=== PATIENT | male | born 1945 | race Caucasian/White ===

== ENCOUNTER 2019-02-25 09:49 | Emergency (ER) | payer MEDICARE ==
--- NOTE | 2019-02-25 10:58 | RAD ---
Exam: Chest one view HISTORY:Altered mental status Comparison: None FINDINGS: Cardiac silhouette: Normal Aorta: Unremarkable Pulmonary vessels: Normal Costophrenic angles: Clear LUNGS: Chronic changes. No masses or consolidation. Pneumothorax: None Osseous abnormalities: None IMPRESSION: No acute cardiopulmonary process.
[2019-02-25 11:01] LABS: #Basophils 0.1 thou/uL (0.0-0.2); #Lymphocytes 0.2 thou/uL (1.20-3.40); #Neutrophils 13.4 thou/uL (1.40-6.50); %Basophils 0.4 % (0.0-1.0); %Lymphocytes 1.7 % (21.0-51.0); %Neutrophils 90.9 % (42.0-75.0); Mean Corpuscular HGB CONC 30.5 g/dL (32.0-36.0); Mean Corpuscular Hemoglobin 28.1 pg (27.0-31.0); Mean Corpuscular Volume 92.1 fL (78.0-98.0); Mean Platelet Volume 9.4 fL (7.4-10.4); Platelet Count 244 thou/uL (130-400); RBC Distribution Width 12.3 % (11.5-14.5); Red Blood Cell (RBC) Count 5.35 mill/uL (4.70-6.10); White Blood Cell (WBC) Count 14.7 thou/uL (4.8-10.8)
[2019-02-25 11:05] LABS: ALT (SGPT) 38 U/L (8-55); AST (SGOT) 17 U/L (5-34); Alkaline Phosphatase 126 U/L (40-110); Anion Gap 28 mmol/L (10-20); BUN (Urea Nitrogen) 66 mg/dL (8.4-25.7); Bilirubin, Total 0.4 mg/dL (0.2-1.2); CK (CPK) 38 U/L (30-200); Calc. Creatinine Clearance 0 mL/min (70-130); Carbon Dioxide 19 mmol/L (23-31); Chloride 81 mmol/L (98-107); Estimated GFR-MDRD 10; Globulin 2.6 g/dL (2.4-3.5); Protein, Total 6.6 g/dL (5.8-8.1); Sodium 122 mmol/L (136-145)
[2019-02-25 11:29] LABS: Calcium 12.8 mg/dL (7.8-10.44)
[2019-02-25 11:30] LABS: Glucose 1093 mg/dL (83-110)
[2019-02-25] MEDS ORDERED: Insulin Regular 300 UNITS/3 ML VIAL ONE (11:37)
[2019-02-25 12:03] LABS: Bilirubin Negative (Negative); Blood, Urine Moderate (Negative); Clarity Clear (Clear); Glucose, Urine (Dipstick) >=1000 mg/dL (Negative); Leukocyte Negative (Negative); Nitrite Negative (Negative); Protein, Urine (Dipstick) Negative (Neg-Trace); Urobilinogen 0.2 mg/dL (Less than 2)
[2019-02-25 12:19] LABS: Base Excess-Venous -4.6 mmol/L (-2.0 to 3.0); Bicarbonate (HCO3v) 20.1 mmol/L (22.0-28.0); CO2 Tension (PvCO2) 35.7 mmHg (40.0-50.0); Calcium, Ionized 1.41 mmol/L (See Comments:); Chloride 89 mmol/L (98-107); Hemoglobin - Calc 15.9 g/dL (14.0-18.0); Potassium 5.5 mmol/L (3.5-5.1); Sodium 122 mmol/L (138-145); T. Carbon Dioxide 21.2 mmol/L (22.0-28.0); vO2 Saturation-calc 85.6 % (60.0-85.0)
[2019-02-25 12:23] LABS: Bacteria/HPF None Seen HPF (None Seen); Squamous Epithelial 0-3 HPF (0-3); WBC/HPF None Seen HPF (0-3)
== END 2019-02-25 12:58 | disposition short-term general hospital (02) ==
LOC: NAV ERS 09:49
DX: E11.10 Type 2 diabetes mellitus with ketoacidosis without coma (principal); N17.9 Acute kidney failure, unspecified; E86.0 Dehydration; E87.6 Hypokalemia; R33.9 Retention of urine, unspecified; Z79.82 Long term (current) use of aspirin; Z79.899 Other long term (current) drug therapy
CPT/HCPCS: 36415; 36416; 51702; 71045; 80053; 81003; 81015; 82010; 82330; 82550; 82803; 83605; 84484; 85025; 87040; 87804; 93005; 96361; 96374; A4353; J1815

== ENCOUNTER 2019-07-18 16:09 | Emergency (ER) | payer MEDICARE ==
--- NOTE | 2019-07-18 16:48 | CT ---
BRAIN CT WITHOUT IV CONTRAST: 07/18/19 HISTORY: Injury from trauma. COMPARISON: 02/25/19. FINDINGS: No focal mass or midline shift. No intra or extra-axial hemorrhage. Sinuses and mastoids are clear of acute process. IMPRESSION: No significant acute intracranial process. No mass or bleed. Stable from prior study. POS: RRE
--- NOTE | 2019-07-18 16:58 | RAD ---
EXAM: CHEST ONE VIEW HISTORY: Left-sided rib pain after falling off a 6 foot ladder. COMPARISON: 02/25/2019 FINDINGS: Questionable lateral and posterolateral left-sided rib fractures are seen; however, due to positionin g, the ribs in this region are overlapping and difficult to adequately evaluate. Dedicated rib series is recommended. Cardiac silhouette is magnified by projection. Pulmonary vasculature is within normal limits. No pneu mothorax or pleural effusion is appreciated. Postoperative changes right shoulder are again seen. IMPRESSION: Suboptimal evaluation of the ribs secondary to positioning of the patient. A dedicated left rib serie s is recommended for further evaluation as there is suggestion of subtle nondisplaced lateral and posterolateral left-sided rib fractures.
--- NOTE | 2019-07-18 17:09 | CT ---
CT THORAX NONCONTRAST: DATE: 07/18/2019 HISTORY: 74-year-old male status post acute chest trauma, fall from 6 foot ladder COMPARISON: none FINDINGS: Images of the lung bases are significantly degraded because of patient breathing motion artifact. There are bilateral C7 cervical ribs. Multiple acute left rib fractures with at least 100% bone width displacement: Involving the lateral a spects of left second, third, fourth, and fifth ribs. Associated subcutaneous emphysema in the left lateral chest wall. No pneumothorax. Small focal consolidation at posterior base of left lower lobe. This could be a pulmonary contusion, atelectasis, or aspiration. Groundglass densities at the bases of bilateral lower lobes. At least some of this probably represent s artifact from breathing motion. Upper lobes are clear of pulmonary edema and consolidation. No thoracic aortic aneurysm. A few small calcified gallstones. No cardiomegaly or pericardial effusion. No mediastinal hematoma. No acute compression fracture of thoracic spine identified. Multilevel moderate and mild degenerative disc disease in mid and lower thoracic spine. No sternal displaced fracture. No displaced fracture of scapula or clavicles. IMPRESSION: 1. At least 4 left lateral acute, traumatic, displaced rib fractures with associated subcutaneous emp hysema of the chest wall. 2. Small focal consolidation at posterior base of left lower lobe.
[2019-07-18 17:21] LABS: PTT 31.1 sec (22.9-36.1); Prothrombin Time 13.1 sec (12.0-14.7)
[2019-07-18] MEDS ORDERED: Ketorolac Tromethamine 30 MG/ML VIAL ONE (17:23)
[2019-07-18] MEDS ORDERED: Fentanyl 100 MCG/2 ML VIAL ONE (17:23)
[2019-07-18] MEDS ORDERED: Acetaminophen 325 MG TAB ONE (17:23)
--- NOTE | 2019-07-18 17:24 | CT ---
CT CERVICAL SPINE WITHOUT IV CONTRAST: 07/18/19 HISTORY: Fell off a six foot ladder, neck pain. FINDINGS: Multilevel degenerative changes are present. No acute fracture, subluxation or facet malalignment is identified. There is a left sided pneumothorax Discussed over the telephone with ER physician, Dr. Jonatan Orona at 4:54 p.m.
[2019-07-18 17:25] LABS: #Basophils 0.1 thou/uL (0.0-0.2); #Eosinphils 0.1 thou/uL (0.0-0.7); #Lymphocytes 0.7 thou/uL (1.20-3.40); #Monocytes 0.7 thou/uL (0.11-0.59); #Neutrophils 8.5 thou/uL (1.40-6.50); %Basophils 0.8 % (0.0-1.0); %Eosinophils 1.1 % (0.0-10.0); %Lymphocytes 7.2 % (21.0-51.0); Hemoglobin 12.9 g/dL (14.0-18.0); Mean Corpuscular HGB CONC 30.4 g/dL (32.0-36.0); Mean Corpuscular Hemoglobin 25.4 pg (27.0-31.0); Mean Corpuscular Volume 83.4 fL (78.0-98.0); Mean Platelet Volume 9.7 fL (7.4-10.4); Platelet Count 194 thou/uL (130-400); RBC Distribution Width 13.6 % (11.5-14.5); Red Blood Cell (RBC) Count 5.08 mill/uL (4.70-6.10); White Blood Cell (WBC) Count 10.2 thou/uL (4.8-10.8)
[2019-07-18 17:29] LABS: ALT (SGPT) 45 U/L (8-55); AST (SGOT) 37 U/L (5-34); Albumin 4.1 g/dL (3.4-4.8); Alkaline Phosphatase 132 U/L (40-110); Anion Gap 14 mmol/L (10-20); BUN (Urea Nitrogen) 27 mg/dL (8.4-25.7); Bilirubin, Total 0.2 mg/dL (0.2-1.2); Calc. Creatinine Clearance 0 mL/min (70-130); Calcium 10.3 mg/dL (7.8-10.44); Carbon Dioxide 26 mmol/L (23-31); Chloride 106 mmol/L (98-107); Estimated GFR-MDRD 66; Globulin 2.8 g/dL (2.4-3.5); Glucose 141 mg/dL (83-110); Potassium 4.4 mmol/L (3.5-5.1); Protein, Total 6.9 g/dL (5.8-8.1); Sodium 142 mmol/L (136-145)
[2019-07-18 17:42] LABS: Bilirubin Negative (Negative); Blood, Urine Large (Negative); Glucose, Urine (Dipstick) Negative (Negative); Leukocyte Small (Negative); Nitrite Negative (Negative); Protein, Urine (Dipstick) 100 mg/dL (Neg-Trace); Urobilinogen 0.2 mg/dL (Less than 2)
[2019-07-18 17:48] LABS: Bacteria/HPF 1+ HPF (None Seen); Clarity Slightly Cloudy (Clear); RBC/HPF Greater than 50 HPF (0-3); Squamous Epithelial 0-3 HPF (0-3); WBC/HPF Greater Than 50 HPF (0-3)
== END 2019-07-18 17:54 | disposition short-term general hospital (02) ==
LOC: NAV ERS 16:09
DX: S27.0XXA Traumatic pneumothorax, initial encounter (principal); S22.42XA Multiple fractures of ribs, left side, initial encounter for closed fracture; I10 Essential (primary) hypertension; J44.9 Chronic obstructive pulmonary disease, unspecified; N40.0 Benign prostatic hyperplasia without lower urinary tract symptoms; Z79.82 Long term (current) use of aspirin; Z79.4 Long term (current) use of insulin; Z79.899 Other long term (current) drug therapy; W11.XXXA Fall on and from ladder, initial encounter; E11.9 Type 2 diabetes mellitus without complications
CPT/HCPCS: 70450; 71045; 71250; 72125; 80053; 81003; 81015; 83605; 85025; 85610; 85730; 93005; 96374; 96375; J1885; J3010

== ENCOUNTER 2019-08-17 10:38 | Emergency (ER) | payer MEDICARE ==
--- NOTE | 2019-08-17 12:16 | RAD ---
PORTABLE CHEST 1 VIEW: Date: 08/17/2019 Time: 1130 hours HISTORY: Fall. Left rib pain. FINDINGS/IMPRESSION: Comparison made with exam of 08/02/2019. Multiple stable left-sided rib fractures are seen. The costophrenic angles have been excluded from th e film. The heart size is prominent. No pneumothoraces or lobar consolidation seen. There is no evide nce of maura pulmonary edema. POS: [facility]
== END 2019-08-17 12:04 | disposition home or self-care (01) ==
LOC: NAV ERS 10:38
DX: R07.89 Other chest pain (principal); S22.42XD Multiple fractures of ribs, left side, subsequent encounter for fracture with routine healing; G89.29 Other chronic pain; E11.9 Type 2 diabetes mellitus without complications; J44.9 Chronic obstructive pulmonary disease, unspecified; I10 Essential (primary) hypertension; Z79.82 Long term (current) use of aspirin; Z79.899 Other long term (current) drug therapy; Z79.4 Long term (current) use of insulin
CPT/HCPCS: 71045